=== PATIENT | female | born 1995 | race Caucasian/White ===

== ENCOUNTER 2017-12-13 07:40 | Inpatient (IN) | payer OTHER ==
[2017-12-13 09:22] LABS: BASO % 0.4 % (0-2.0); EOS % 0.4 % (0-4.5); HEMATOCRIT 36.2 % (32.4-45.2); HEMOGLOBIN 12.3 GM/dL (10.7-15.3); LYMPH % 18.5 % (8-40); MCH 29.4 pg (25.7-33.7); MEAN CELL VOLUME 86.3 fl (80-96); MEAN PLT VOLUME 9.4 fl (7.5-11.1); MONO % 6.7 % (3.8-10.2); PLATELET COUNT 217 K/MM3 (134-434); RBC 4.19 M/mm3 (3.60-5.2); RDW 13.2 % (11.6-15.6); WHITE BLOOD COUNT 9.4 K/mm3 (4.0-10.0)
[2017-12-13 09:35] LABS: INR 0.92 (0.82-1.09); PROTHROMBIN TIME (PATIENT) 10.4 SEC (9.7-13.0)
[2017-12-13 09:37] VITALS: BMI 24.3
[2017-12-13 09:38] LABS: ACTIVATED PTT 27.1 SECONDS (26.9-34.4)
[2017-12-13 09:45] LABS: ALBUMIN 2.9 g/dl (3.4-5.0); ANION GAP 7 (8-16); BILIRUBIN,TOTAL 0.4 mg/dL (0.2-1.0); BLOOD UREA NITROGEN 11 mg/dL (7-18); CALCIUM 8.4 mg/dL (8.5-10.1); CHLORIDE 106 mmol/L (98-107); CO2 25 mmol/L (21-32); CREATININE 0.6 mg/dL (0.55-1.02); GLUCOSE,RANDOM 80 mg/dL (74-106); SGOT/AST 136 U/L (15-37); SGPT/ALT 256 U/L (12-78); SODIUM 138 mmol/L (136-145); URIC ACID 4.1 mg/dL (2.6-7.2)
[2017-12-13 09:46] LABS: ALK PHOS 249 U/L (45-117)
[2017-12-13] MEDS ORDERED: DINOPROSTONE 10 MG VAGINAL SUPPOSITORY VG ONE (10:00)
[2017-12-13] MEDS: DEXTROSE 5%-LACTATED RINGERS 1,000 ML IV SCH ×2 (10:00→16:07)
[2017-12-13] MEDS ORDERED: DEXTROSE 5%-LACTATED RINGERS 1,000 ML IV SCH (10:00)
[2017-12-13 10:23] LABS: URINE APPEARANCE SLCLOUDY; URINE BILIRUBIN NEGATIVE (<2.0 mg/dL); URINE COLOR YELLOW; URINE GLUCOSE (UA) NEGATIVE (NEGATIVE); URINE KETONE NEGATIVE (NEGATIVE); URINE LEUK ESTERASE 1+ (NEGATIVE); URINE NITRITE NEGATIVE (NEGATIVE); URINE PROTEIN NEGATIVE (NEGATIVE); URINE UROBILINOGEN NEGATIVE mg/dL (0.2-1.0)
[2017-12-13 10:29] LABS: EPI CELLS RARE /HPF (FEW); URINE BACTERIA RARE /hpf (NONE SEEN); URINE MUCUS RARE
--- NOTE | 2017-12-13 10:33 | HP ---
Past Medical History - Admission Chief Complaint: Total body itch History of Present Illness: 22 yo @ 37 weeks gestation, EDC 01/03/18, with Cholestasis of referred by [facility] Dr. Martinez for induction of labor. History Source: Patient Limitations to Obtaining History: No Limitations - Past Medical History ...: 2 ...Para: 1 ...Term: 1 ...: 0 ...Spon : 0 ...Induced : 0 ...Multiple Gestation: 0 ...LMP: 03/29/17 ... Weeks Gestation by Dates: 37.0 ...EDC by Dates: 01/03/18 - Past Surgical History Past Surgical History: Yes: None Hx Myomectomy: No Hx Transabdominal Cerclage: No - Smoking History Smoking history: Never smoked Have you smoked in the past 12 months: No - Alcohol/Substance Use Hx Alcohol Use: No - Social History Usual Living Arrangement: Yes: With Parent History of Recent Travel: No Home Medications - Allergies Allergies/Adverse Reactions: Allergies Allergy/AdvReac Type Severity Reaction Status Date / Time No Known Allergies Allergy Verified 12/13/17 09:40 - Home Medications Home Medications: Ambulatory Orders Vitamins (Sjr) - 1 tab PO DAILY 12/13/17 Family Disease History - Family Disease History Family History: Unremarkable Review of Systems - Review of Systems Constitutional: reports: Other (Total body rash) Eyes: reports: No Symptoms HENT: reports: No Symptoms Neck: reports: No Symptoms Cardiovascular: reports: No Symptoms Respiratory: reports: No Symptoms Gastrointestinal: reports: No Symptoms Genitourinary: reports: Other (Mild contractions pain) Musculoskeletal: reports: No Symptoms Integumentary: reports: Rash Neurological: reports: No Symptoms Endocrine: reports: No Symptoms Hematology/Lymphatic: reports: No Symptoms Psychiatric: reports: No Symptoms Pain Intensity: 2 Physical Exam - Maternity Vital Signs: Vital Signs Temperature 98.5 F 12/13/17 09:59 Pulse Rate 85 12/13/17 09:59 Respiratory Rate 20 12/13/17 09:59 Blood Pressure 127/63 12/13/17 09:59 O2 Sat by Pulse Oximetry (%) Constitutional: Yes: Well Nourished Eyes: Yes: Conjunctiva Clear HENT: Yes: Atraumatic Neck: Yes: Supple Cardiovascular: Yes: Regular Rate and Rhythm Lungs: Clear to auscultation - Abdominal Exam/OB Number of Fetuses: Single Presentation: Vertex Contractions: Yes Regularity: Irregular - Vaginal Exam/OB Vaginal Bleediing: No Dilatation (cm): 1 Effacement (%): 50 Amniotic Membrane Status: Intact Station: -2 - Physical Exam Musculoskeletal: Yes: WNL ...Motor Strength: WNL Psychiatric: Yes: Alert, Oriented - Labs Lab Results: CBC, BMP 12/13/17 09:00 12/13/17 09:00 Problem List - Problems (1) Cholestasis during , antepartum Code(s): O26.619 - LIVER AND BILIARY TRACT DISORD IN , UNSP TRIMESTER; K83.1 - OBSTRUCTION OF BILE DUCT (2) 37 weeks gestation of Code(s): Z3A.37 - 37 WEEKS GESTATION OF Assessment/Plan IUP @ 37 weeks Cholestasis of Admit for induction of labor with Cervidil Analgesia as needed
[2017-12-13] MEDS ORDERED: BUTORPHANOL TARTRATE 1 MG/ML VIAL IVPB ONE (15:45)
[2017-12-13] MEDS ORDERED: PROMETHAZINE HCL 25 MG/1 ML VIAL IVPB ONE (15:45)
[2017-12-13] MEDS ORDERED: BUTORPHANOL TARTRATE 1 MG/ML VIAL ONE ×2 (15:54)
[2017-12-13] MEDS ORDERED: PROMETHAZINE HCL 25 MG/1 ML VIAL ONE (15:54)
[2017-12-13] MEDS ORDERED: OXYTOCIN 20 UNITS in 0.9% NS 20 UNIT/1,000 ML INFUS.BAG IV ONE ×2 (16:44→18:11)
--- NOTE | 2017-12-13 16:47 | PN ---
Progress Note (short form) - Note Progress Note: Patient seen and evaluated. She's lying comfortably in bed after Stadol. She's status post Cervidil FHR : Reactive Ravalli : + contractions Q 1 min VE : 5 / 90 / -1 AROM ( bloody ) A/P : Active labor Status post cervidil induction Cholestasis of Anticipate Problem List - Problems (1) Cholestasis during , antepartum Code(s): O26.619 - LIVER AND BILIARY TRACT DISORD IN , UNSP TRIMESTER; K83.1 - OBSTRUCTION OF BILE DUCT (2) 37 weeks gestation of Code(s): Z3A.37 - 37 WEEKS GESTATION OF
[2017-12-13] MEDS: OXYTOCIN 20 UNITS in 0.9% NS 20 UNIT/1,000 ML INFUS.BAG IV SCH ×2 (16:58→18:17)
[2017-12-13] MEDS ORDERED: BISACODYL 10 MG SUPP.RECT RC PRN (17:05)
[2017-12-13] MEDS ORDERED: WITCH HAZEL 50% (TUCKS) 40 PAD/JAR PAD TP PRN (17:05)
[2017-12-13] MEDS ORDERED: BENZOCAINE 20% 57 GM BOTTLE TP PRN (17:05)
[2017-12-13] MEDS ORDERED: METHYLERGONOVINE MALEATE 0.2 MG/1 ML AMP IM PRN (17:05)
[2017-12-13] MEDS ORDERED: BENZOCAINE 28 GM HEMORRHOIDAL OINTMENT TP PRN (17:05)
--- NOTE | 2017-12-13 17:09 | PN ---
Delivery - Delivery Vaginal Delivery: Spontaneous Type of Anesthesia: Local Episiotomy/Laceration: None EBL (cc): 300 Delivery, Single - Feeding Plan Initial Plan: Elected not to breastfeed exclusively throughout hospitalization Remarks - Remarks Remarks: Normal spontaneous vaginal delivery of a live boy over intact perineum. Nose / Oropharynx suctioned @ perineum. Cord clamped and cut. Placenta expelled spontaneously intact.
[2017-12-13] MEDS: FERROUS SO4 325 MG TABLET (FP) PO SCH (18:17)
[2017-12-14] MEDS: IBUPROFEN 600 MG TABLET (FP) PO PRN ×4 (00:04→17:14)
[2017-12-14] MEDS: ACETAMINOPHEN 325 MG TABLET (FP) PO PRN ×4 (00:15→17:13)
--- NOTE | 2017-12-14 02:48 | PN ---
Post Progress Note - Subjective Subjective: 22 yo Para 2, status post vaginal delivery, seen and evaluated. Doing well. Post Day: 1 Type of Delivery: Vital Signs: Vital Signs Temperature 98.3 F 12/14/17 01:35 Pulse Rate 95 H 12/14/17 01:35 Respiratory Rate 18 12/14/17 01:35 Blood Pressure 100/61 12/14/17 01:35 O2 Sat by Pulse Oximetry (%) 100 12/13/17 18:00 Breast Exam: Yes: Soft Uterus: Yes: Fundus Firm Abdomen/GI: Yes: Abdomen soft, Tolerating PO Lochia: Yes: Rubra Lochia, amount: Moderate Extremities: Yes: Calves non-tender Perineum: Yes: Intact Activity: Ambulating - Labs Labs: CBC WBC 9.4 K/mm3 (4.0-10.0) 12/13/17 09:00 RBC 4.19 M/mm3 (3.60-5.2) 12/13/17 09:00 Hgb 12.3 GM/dL (10.7-15.3) 12/13/17 09:00 Hct 36.2 % (32.4-45.2) 12/13/17 09:00 MCV 86.3 fl (80-96) 12/13/17 09:00 MCH 29.4 pg (25.7-33.7) 12/13/17 09:00 MCHC 34.0 g/dl (32.0-36.0) 12/13/17 09:00 RDW 13.2 % (11.6-15.6) 12/13/17 09:00 Plt Count 217 K/MM3 (134-434) 12/13/17 09:00 MPV 9.4 fl (7.5-11.1) 12/13/17 09:00 Neutrophils % 74.0 % (42.8-82.8) 12/13/17 09:00 Lymphocytes % 18.5 % (8-40) 12/13/17 09:00 Monocytes % 6.7 % (3.8-10.2) 12/13/17 09:00 Eosinophils % 0.4 % (0-4.5) 12/13/17 09:00 Basophils % 0.4 % (0-2.0) 05/02/18 09:00 Problem List - Problems (1) Cholestasis during , antepartum Code(s): O26.619 - LIVER AND BILIARY TRACT DISORD IN , UNSP TRIMESTER; K83.1 - OBSTRUCTION OF BILE DUCT (2) 37 weeks gestation of Code(s): Z3A.37 - 37 WEEKS GESTATION OF Assessment/Plan Status post vaginal delivery Stable Continue routine care
[2017-12-14] MEDS: FERROUS SO4 325 MG TABLET (FP) PO SCH ×3 (07:58→17:10)
[2017-12-14 08:52] LABS: BASO % 0.3 % (0-2.0); EOS % 0.8 % (0-4.5); HEMOGLOBIN 12.4 GM/dL (10.7-15.3); LYMPH % 20.8 % (8-40); MCH 29.2 pg (25.7-33.7); MCHC 33.5 g/dl (32.0-36.0); MEAN CELL VOLUME 87.2 fl (80-96); MEAN PLT VOLUME 9.6 fl (7.5-11.1); MONO % 6.1 % (3.8-10.2); PLATELET COUNT 212 K/MM3 (134-434); RBC 4.25 M/mm3 (3.60-5.2); RDW 13.3 % (11.6-15.6); WHITE BLOOD COUNT 13.1 K/mm3 (4.0-10.0)
[2017-12-14] MEDS: PRENATAL VITAMINS W/ FOLIC ACID TABLET (FP) PO SCH (09:58)
[2017-12-14] MEDS ORDERED: SENNOSIDES/DOCUSATE COMBO (SENNA PLUS) TABLET (UD) PO PRN (22:00)
[2017-12-15] MEDS: IBUPROFEN 600 MG TABLET (FP) PO PRN ×2 (03:02→07:53)
[2017-12-15] MEDS: ACETAMINOPHEN 325 MG TABLET (FP) PO PRN ×2 (03:04→07:54)
[2017-12-15] MEDS: FERROUS SO4 325 MG TABLET (FP) PO SCH ×2 (07:53→12:02)
[2017-12-15 09:15] LABS: ALBUMIN 2.6 g/dl (3.4-5.0); ALK PHOS 190 U/L (45-117); ANION GAP 5 (8-16); BILIRUBIN,TOTAL 0.3 mg/dL (0.2-1.0); BLOOD UREA NITROGEN 12 mg/dL (7-18); CALCIUM 8.6 mg/dL (8.5-10.1); CHLORIDE 107 mmol/L (98-107); CO2 28 mmol/L (21-32); CREATININE 0.6 mg/dL (0.55-1.02); GLUCOSE,RANDOM 75 mg/dL (74-106); POTASSIUM 4.8 mmol/L (3.5-5.1); SGOT/AST 75 U/L (15-37); SGPT/ALT 211 U/L (12-78); SODIUM 140 mmol/L (136-145); TOT PROT 6.4 g/dl (6.4-8.2)
[2017-12-15] MEDS: PRENATAL VITAMINS W/ FOLIC ACID TABLET (FP) PO SCH (10:00)
[2017-12-15 12:40] VITALS: BP 109/68; PULSE 69; TEMP 98.1
--- NOTE | 2017-12-15 22:43 | DS ---
Physical Exam-LAMP DEVELOPER Vital Signs: Vital Signs Temperature 98.1 F 12/15/17 10:00 Pulse Rate 69 12/15/17 10:00 Respiratory Rate 18 12/15/17 10:00 Blood Pressure 109/68 12/15/17 10:00 O2 Sat by Pulse Oximetry (%) 100 12/13/17 18:00 Constitutional: Yes: Well Nourished Eyes: Yes: Conjunctiva Clear HENT: Yes: Atraumatic Neck: Yes: Supple Cardiovascular: Yes: Regular Rate and Rhythm Respiratory: Yes: Regular Gastrointestinal: Yes: Normal Bowel Sounds Pelvis: Yes: WNL External Genitalia: Yes: Normal Vaginal Exam: Yes: Normal Cervix: Yes: Normal Uterus: Yes: Firm ....Post : Yes: Uterus firm, Moderate lochia serosa Breast(s): Yes: WNL Integumentary: Yes: WNL Neurological: Yes: Alert, Oriented ...Motor Strength: WNL Psychiatric: Yes: Alert, Oriented Labs: CBC, BMP 12/14/17 08:00 12/15/17 08:25 Delivery - Delivery Vaginal Delivery: Spontaneous Type of Anesthesia: None Episiotomy/Laceration: None EBL (cc): 300 Delivery, Single - Stages of Labor Date 1st Stage Initiatied: 12/13/17 Time 1st Stage Initiated: 11:00 Date 2nd Stage Initiated: 12/13/17 Time 2nd Stage Initiated: 16:50 Date of Delivery: 12/13/17 Time of Delivery: 16:56 Time Placenta Delivered: 16:58 - Condition of Machine Feeder/Restaurant Line Cook Present: No Infant Gender: Male Weight: 5 lb 3 oz Position: Right, OA Total Hours ROM (Hrs/Mins): 0hrs 23min - 1 Minute Total Score: 9 5 Minutes Total Score: 9 - Mobile Feeding Plan Initial Plan: Elected not to breastfeed exclusively throughout hospitalization Discharge Summary Reason For Visit: LABOR Procedures: Principal: Normal spontaneous vaginal delivery Hospital Course: Patient was induced due to Cholestasis of . She received Benadryl for itching during her stay. Condition: Good - Instructions Diet, Activity, Other Instructions: Regular diet No douching no sexual activity x 6 weeks F/U in clinic in 6 weeks Disposition: HOME - Home Medications Comprehensive Discharge Medication List: Ambulatory Orders Vitamins (Sjr) - 1 tab PO DAILY 12/13/17
== END 2017-12-15 13:00 | disposition home or self-care (01) | DRG 560 ==
LOC: JLDR 07:40 → J3W 19:36
PROVIDERS: ADMIT Obstetrics & Gynecology; ATTEND Obstetrics & Gynecology
PROC: 10E0XZZ Delivery of Products of Conception, External Approach (ICD-10-PCS; principal; 2017-12-15)
DX: O26.62 Liver and biliary tract disorders in childbirth (principal); K83.1 Obstruction of bile duct; O36.5930 Maternal care for other known or suspected poor fetal growth, third trimester, not applicable or unspecified; Z3A.37 37 weeks gestation of pregnancy; Z37.0 Single live birth
CPT/HCPCS: 36415; 59409; 80053; 81003; 81015; 84550; 85025; 85610; 85730; 86593; 86850; 86900; 86901